=== PATIENT | male | born 1955 ===

== ENCOUNTER 2024-04-15 10:20 | Emergency (ER) | payer SELFPAY ==
[2024-04-15 10:25] VITALS: BP 107/68; PULSE 59; RESP 19; TEMP 36.6; O2SAT 98; BMI 36.2
--- NOTE | 2024-04-15 11:00 | ED.GENADULT ---
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 His is here with him and notes they aren't sure what the medications were for he was in [facility] and they both just came on a 1 month visa 3 days ago. He came to our ED wanting his fungal rash on his foot looked at, L eye irritation which is intermittently chronic he denies change in vision. He also reports his whole body feels tired and weak. MD complaint: eye irritation, foot rash, whole body weakness, Onset (ago): day(s) (3) Location: eyes, left, right and lower extremity Radiation: non-radiation Severity: mild Relieving factors: none Exacerbating factors: movement Associated symptoms: weakness Treatments prior to arrival: none Related Data Previous Rx's ?Medication ?Instructions ?Recorded clotrimazole 1 % topical cream 1 appl topical BID 2 weeks #15 04/15/24 grams erythromycin 5 mg/gram (0.5 %) eye 0.5 inch ophthalmic (eye) BID 5 04/15/24 ointment days #3.5 grams Allergies Allergy/AdvReac Type Severity Reaction Status Date / Time No Known Allergies Allergy Verified 04/15/24 10:27 Review of Systems Review of Systems: Constitutional : No Fever, No Chills ENT/Mouth : No sore throat, No Rhinorrhea Eyes: No Eye Pain, No Swelling, No Redness, pos eye irritation Cardiovascular : No Chest Pain, No SOB Respiratory : No Cough, No Sputum Gastrointestinal : No Nausea, No Vomiting, No Diarrhea, No abdominal Pain Genitourinary : No Dysuria, No Hematuria Musculoskeletal : No joint pain, No Myalgias, No Joint Swelling Skin : No Skin Lesions, positive skin rash Neuro : pos Weakness, No Numbness, No Headache Psych : No Anxiety, No Depression Heme/Lymph: No Bruising, No Bleeding,No Lymphadenopathy Endocrine : No Polyuria, No Polydipsia All other systems reviewed and are negative PMFSH Past Medical History Attestation statement: The following information was validated with the patient. Medical History CVA (cerebral vascular accident) Social History Social History (Updated 04/15/24 @ 16:07 by Olga Puri DO) Patient Tobacco Use Status: Tobacco use Unknown Advance Directives: No Advance Directives Information Provided: Yes Physical Exam ED Vital Signs: Vital Signs - 24 hr 04/15/24 10:25 04/15/24 15:35 04/15/24 18:13 Temperature 98 F 97.6 F 97.7 F Pulse Rate 59 52 55 Respiratory Rate 19 16 18 Blood Pressure 107/68 160/76 H 132/58 L Pulse Oximetry 98 99 96 Oxygen Delivery Method Room Air Room Air Room Air BMI result Body Mass Index 36.2 Appearance: Alert. Oriented X3. No acute distress. Eyes: Pupils equal, round and reactive to light. no signs of infection to L eye but reports it is irritated - no discharge minimal conjunctival redness ENT: Pharynx normal. Neck: Normal inspection. Neck supple. CVS: Normal heart rate and rhythm. Pulses normal. Respiratory: No respiratory distress. Breath sounds normal. Abdomen: Soft and nontender. Skin: Skin warm and dry. Normal skin color. Normal skin turgor. Extremities: No lower extremity edema. No calf ttp Neuro: Oriented X 3. L sided facial weakness and L sided 4+/5 in LUE and LLE he reports this is all chronic and baseline. Course Course Course Narrative: This is a rapid medical exam performed by Tamia Dela Cruz NP: Additional HPI, ROS, PE not included below will be deferred to primary provider. Patient is a 68-year-old Danish speaking male with history of CVA presenting to the ED with complaint of bilateral eye irritation/burning as well as worsening left sided facial numbness for several weeks. Reports symptoms worsen with the cold. Pain with chewing. 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 He denies GIB symptoms. At this time labs, UA, no new deficits. Will start erythromycin eye ointment of L eye, clotrimazole for foot rash. He has no cough or fevers to suggest pneumonia Differential Diagnosis Differential Diagnoses: The differential diagnosis associated with the presentation includes weakness, basic labs, eye irritation, fungal rash Admission/Observation Consideration of admission/observation: Escalation of care including admission/observation considered no acute findings can be treated as outpatient Lab Data [facility] Lab Attestation statement: I reviewed the patient's lab results. 04/15/24 11:43 04/15/24 11:43 Labs: Lab Results 04/15/24 04/15/24 04/15/24 Range/Units 11:43 17:47 18:30 WBC 5.0 (4.8-10.8) X10*3/uL RBC 4.77 (4.60-5.80) X10*6/uL Hgb 14.0 (14.0-18.0) g/dl Hct 40.1 L (42.0-52.0) % MCV 84.1 (80.0-98.0) fL MCH 29.4 (27.0-33.0) pg MCHC 34.9 (31.0-36.0) g/dl RDW 13.1 (11.0-16.0) % Plt Count 120 L (160-400) X10*3/uL MPV 9.3 L (9.4-12.4) fL Immature Gran % (Auto) 0.4 (0.0-0.4) % Neut % (Auto) 49.2 (45-73) % Lymph % (Auto) 28.0 (20-40) % [place] % (Auto) 10.2 (2-11) % Eos % (Auto) 12.0 H (0-4) % Baso % (Auto) 0.2 (0-2) % Lymph # (Auto) 1.4 (1.2-4.9) X10*3/uL [place] # (Auto) 0.5 (0.1-1.2) X10*3/uL Eos # (Auto) 0.6 H (0.0-0.4) X10*3/uL Baso # (Auto) 0.0 (0.0-0.2) X10*3/uL Abs Immat Gran (auto) 0.02 (0.00-0.03) X10*3/uL Absolute Neuts (auto) 2.5 (2.0-8.3) x10*3/uL Absolute Nucleated RBC 0.000 (0.0-0.012) X10*3/uL Nucleated RBC % (auto) 0.0 (0.0-0.2) /100WBC ESR 7 (0-15) MM/HR PT 11.1 (11.1-13.3) SEC INR 0.9 (0.9-1.1) Sodium 139 (135-145) mmol/L Potassium 3.8 (3.3-5.1) mmol/L Chloride 108 (96-108) mmol/L Carbon Dioxide 25 (22-29) mmol/L Anion Gap 10 L (12-20) BUN 13 (9-16) mg/dL Creatinine 0.69 (0.5-1.4) mg/dL Estim Creat Clear Calc 93.4 Estimated GFR > 60 Random Glucose 94 (60-115) mg/dL Calcium 8.4 (8.4-10.2) mg/dL Total Bilirubin 1.4 H (0.0-1.0) mg/dL Direct Bilirubin 0.4 (0.0-0.5) mg/dL AST 27 (5-37) U/L ALT 37 (0-40) U/L Alkaline Phosphatase 93 (39-117) U/L Total Protein 6.7 (6.5-8.0) g/dL Albumin 3.5 (3.5-5.0) g/dL Urine Color Yellow Urine Appearance Clear Urine pH 8.0 (5.0-9.0) Ur Specific [place] 1.015 (1.005-1.025) Urine Protein Negative (Neg-Trace) mg/dL Urine Glucose (UA) Negative (Negative) mg/dL Urine Ketones Negative (Negative) mg/dL Urine Blood Negative (Negative) Urine Nitrite Negative (Negative) Ur Leukocyte Esterase Negative (Negative) Influenza Type A (PCR) NEGATIVE (Negative) Influenza Type B (PCR) NEGATIVE (Negative) RSV RNA Qual (PCR) NEGATIVE (Negative) SARS-CoV-2 RNA (RT-PCR) NEGATIVE (Negative) Independent Historian Clinical information obtained from an independent historian. History obtained from or confirmed by: Spouse Prescription Management I considered prescription management with: Other Discharge Plan Discharge Clinical Impression: Eye irritation, Rash of both feet, Fatigue Patient Disposition: Home, Self-Care Instructions: Acute Rash (ED), Fatigue (ED), Eye Pain (ED) Additional Instructions: labs and urine reassuring use cream for feet eye ointment for eye follow up with your doctor return for any worsening symptoms or concerns. negative for flu and covid Prescriptions: New clotrimazole 1 % cream 1 appl topical BID 14 Days Qty: 15 0RF erythromycin 5 mg/gram (0.5 %) ointment 0.5 inch ophthalmic (eye) BID 5 Days Qty: 3.5 0RF Print Language: Danish
[2024-04-15 11:49] LABS: MANUAL DIFF FLAG NO
[2024-04-15 11:55] LABS: Basophils Percent Auto 0.2 % (0-2); Eosinophils Absolute Auto 0.6 X10*3/uL (0.0-0.4); Hematocrit 40.1 % (42.0-52.0); Imm Gran Abs Auto 0.02 X10*3/uL (0.00-0.03); Imm Gran Pct Auto 0.4 % (0.0-0.4); Lymphocytes Absolute Auto 1.4 X10*3/uL (1.2-4.9); Mean Corpuscular HGB Conc 34.9 g/dl (31.0-36.0); Mean Corpuscular Hemoglobin 29.4 pg (27.0-33.0); Mean Corpuscular Volume 84.1 fL (80.0-98.0); Mean Platelet Volume 9.3 fL (9.4-12.4); Monocytes Absolute Auto 0.5 X10*3/uL (0.1-1.2); Monocytes Percent Auto 10.2 % (2-11); Neutrophils Absolute Auto 2.5 x10*3/uL (2.0-8.3); Neutrophils Percent Auto 49.2 % (45-73); Platelet Count 120 X10*3/uL (160-400); Red Blood Count 4.77 X10*6/uL (4.60-5.80); Red Cell Distribution Width 13.1 % (11.0-16.0)
[2024-04-15 12:01] LABS: INTERNATIONAL NORM RATIO 0.9 (0.9-1.1); Prothrombin Time 11.1 SEC (11.1-13.3)
[2024-04-15 12:09] LABS: Anion Gap 10 (12-20); Blood Urea Nitrogen 13 mg/dL (9-16); Calcium 8.4 mg/dL (8.4-10.2); Carbon Dioxide 25 mmol/L (22-29); Chloride 108 mmol/L (96-108); Creatinine Clr Calc Pharmacy 93.4; Estimated Glomerular Filt Rate > 60; Glucose Random 94 mg/dL (60-115); Potassium 3.8 mmol/L (3.3-5.1); Sodium 139 mmol/L (135-145)
[2024-04-15 14:21] LABS: Erythrocyte Sedimentation Rate 7 MM/HR (0-15)
[2024-04-15 15:35] VITALS: BP 160/76; PULSE 52; RESP 16; TEMP 36.4; O2SAT 99
[2024-04-15 16:22] LABS: Alanine Aminotransferase 37 U/L (0-40); Albumin Level 3.5 g/dL (3.5-5.0); Alkaline Phosphatase 93 U/L (39-117); Aspartate Amino Transferase 27 U/L (5-37); Bilirubin Direct 0.4 mg/dL (0.0-0.5); Bilirubin Total 1.4 mg/dL (0.0-1.0); Total Protein 6.7 g/dL (6.5-8.0)
[2024-04-15] MEDS: Erythromycin Base 0.5% Oph Oin 1 GM TUBE 1 CM EYE-LEFT (17:49)
[2024-04-15 18:13] VITALS: BP 132/58; PULSE 55; RESP 18; TEMP 36.5; O2SAT 96
[2024-04-15 18:33] LABS: Influenza A PCR NEGATIVE (Negative); Influenza B PCR NEGATIVE (Negative); Resp Syncy Virus RNA Qual PCR NEGATIVE (Negative); SARS COV2 PCR INHOUSE NEGATIVE (Negative)
[2024-04-15 18:49] LABS: Appearance Urine Clear; Color Urine Yellow; Glucose Urine UA Negative (Negative); Leukocyte Esterase Urine Negative (Negative); Nitrite Urine Negative (Negative); Specific Gravity - Urine 1.015 (1.005-1.025); Urine Blood Negative (Negative); Urine Ketones Negative (Negative); Urine Protein Negative (Neg-Trace)
[2024-04-15 20:00] VITALS: BP 132/58; PULSE 55; RESP 18; TEMP 36.5; O2SAT 96
[2024-04-20 11:18] LABS: A. Phagocytphilium DNA,RT-PCR NOT DETECTED (NOT DETECTED); Babesia Microti DNA, RT-PCR NOT DETECTED (NOT DETECTED); E.Chaffeensis DNA RT-PCR NOT DETECTED (NOT DETECTED); Lyme(Borrelia ssp)DNA RT-PCR NOT DETECTED (NOT DETECTED)
== END 2024-04-15 20:01 | disposition home or self-care (01) ==
PROVIDERS: Registered Nurse Emergency; Emergency Provider Emergency Medicine
DX: H57.12 Ocular pain, left eye (principal); R21 Rash and other nonspecific skin eruption; R53.83 Other fatigue; Z03.818 Encounter for observation for suspected exposure to other biological agents ruled out; Z86.73 Personal history of transient ischemic attack (TIA), and cerebral infarction without residual deficits
CPT/HCPCS: 0241U; 36415; 80048; 80076; 81003; 85025; 85610; 85652; 87468; 87469; 87484; 87798; 99283